=== PATIENT | male | born 1990 | race African-American/Black ===

== ENCOUNTER 2020-08-16 23:09 | Emergency (ER) | payer MEDICAID ==
[~2020-08-16] VITALS: Ht 172.7 cm; Wt 82.0 kg
[2020-08-16] MEDS ORDERED: IBUPROFEN 600MG TABLET PO ONE (23:45)
[2020-08-16] MEDS ORDERED: METHOCARBAMOL 500MG TABLET PO ONE (23:45)
[2020-08-17] MEDS ORDERED: IBUP-2029 MT (00:49)
[2020-08-17 01:12] VITALS: BP 125/74
== END 2020-08-17 01:24 | disposition home or self-care (01) ==
LOC: ER 23:09
DX: S09.8XXA Other specified injuries of head, initial encounter (principal); S40.211A Abrasion of right shoulder, initial encounter; V09.9XXA Pedestrian injured in unspecified transport accident, initial encounter; Y93.89 Activity, other specified; Y92.89 Other specified places as the place of occurrence of the external cause; Y99.8 Other external cause status
CPT/HCPCS: 72100; 73030; 73130; 99284